=== PATIENT | male | born 1965 | race Hispanic/Latino ===

== ENCOUNTER 2018-01-17 12:12 | Emergency (ER) | payer BC ==
[2018-01-17 13:23] LABS: #Eosinphils 0.1 thou/uL (0.0-0.7); #Lymphocytes 1.4 thou/uL (1.20-3.40); #Monocytes 0.7 thou/uL (0.11-0.59); #Neutrophils 7.8 thou/uL (1.40-6.50); %Basophils 0.3 % (0.0-1.0); %Eosinophils 1.4 % (0.0-10.0); %Lymphocytes 13.5 % (21.0-51.0); %Monocytes 6.5 % (0.0-10.0); %Neutrophils 78.2 % (42.0-75.0); Hemoglobin 15.4 g/dL (14.0-18.0); Mean Corpuscular HGB CONC 34.9 g/dL (32.0-36.0); Mean Corpuscular Hemoglobin 31.2 pg (27.0-31.0); Mean Corpuscular Volume 89.3 fL (78.0-98.0); Mean Platelet Volume 6.5 fL (7.4-10.4); Platelet Count 283 thou/uL (130-400); RBC Distribution Width 11.7 % (11.5-14.5); Red Blood Cell (RBC) Count 4.94 mill/uL (4.70-6.10)
[2018-01-17] MEDS ORDERED: ISOVUE-370 76%-LOCM 1 ML ONE (13:33)
[2018-01-17 13:38] LABS: Bilirubin Negative (Negative); Blood, Urine Negative (Negative); Clarity CLEAR (Clear); Glucose, Urine (Dipstick) Negative (Negative); Leukocyte Negative (Negative); Nitrite Negative (Negative); Protein, Urine (Dipstick) Trace mg/dL (Neg-Trace); Specific Gravity, Urine 1.025 (1.002-1.036); Urobilinogen 0.2 mg/dL (0.2-1.0); pH, Urine 7.5 (5.0-9.0)
[2018-01-17 13:51] LABS: ALT (SGPT) 35 U/L (8-55); AST (SGOT) 29 U/L (5-34); Albumin 4.3 g/dL (3.5-5.0); Alkaline Phosphatase 103 U/L (40-150); Anion Gap 14 mmol/L (10-20); BUN (Urea Nitrogen) 15 mg/dL (8.4-25.7); Bilirubin, Total 0.9 mg/dL (0.2-1.2); CK (CPK) 387 U/L (30-200); Calc. Creatinine Clearance 0 mL/min (70-130); Calcium 9.1 mg/dL (7.8-10.44); Carbon Dioxide 22 mmol/L (22-29); Chloride 104 mmol/L (98-107); Estimated GFR-MDRD Greater than 90; Globulin 3.3 g/dL (2.4-3.5); Glucose 101 mg/dL (70-105); Lipase 11 U/L (8-78); Potassium 3.7 mmol/L (3.5-5.1); Protein, Total 7.6 g/dL (6.0-8.3); Sodium 136 mmol/L (136-145)
--- NOTE | 2018-01-17 14:52 | CT ---
CT ABDOMEN AND PELVIS WITH IV CONTRAST: HISTORY: Abdominal pain most severe on the left side. FINDINGS: Comparison is made with the exam of 10/17/16. FINDINGS: There are mild dependent changes in the lung bases. No free air, free fluid, or lymphadenopathy is s een. There are changes of fatty infiltration of the liver without focal mass or abnormal biliary elizabeth awilda dilatation. No calcified gallstones are seen. The spleen, pancreas, adrenal glands, and kidneys are normal. Intestinal malrotation is redemonstrated. Normal-appearing appendix is noted. There is thickening o f the wall of the colon in the left lower quadrant with surrounding inflammatory changes. There are fat-containing bilateral inguinal herniae, left larger than right. There are degenerative changes in the spine. No aneurysmal dilatation of the abdominal aorta is seen. IMPRESSION: 1. Findings are consistent with diverticulitis in the left lower quadrant. A colonoscopy should be performed after treatment to exclude malignancy. 2. Fatty liver. 3. Intestinal malrotation. POS: [facility]
[2018-01-17] MEDS ORDERED: Ciprofloxacin 500 MG TAB ONE (14:59)
[2018-01-17] MEDS ORDERED: metroNIDAZOLE 250 MG TAB ONE (14:59)
== END 2018-01-17 15:05 | disposition home or self-care (01) ==
LOC: ERS 12:12
DX: K57.92 Diverticulitis of intestine, part unspecified, without perforation or abscess without bleeding (principal); I10 Essential (primary) hypertension
CPT/HCPCS: 36415; 74177; 80053; 81003; 82550; 83605; 83690; 85025; A4353